=== PATIENT | male | born 1995 | race Caucasian/White ===

== ENCOUNTER 2017-09-23 07:14 | Day surgery (SDC) | payer BC ==
[2017-09-23] MEDS ORDERED: PROPOFOL 20 ML ×2 (09:24)
== END 2017-09-23 13:00 | disposition home or self-care (01) ==
LOC: GIL 07:14
DX: R19.4 Change in bowel habit (principal); K64.8 Other hemorrhoids
CPT/HCPCS: 45380; 88305